=== PATIENT | male | born 1940 | race Caucasian/White ===

== ENCOUNTER → 2017-04-23 | Outpatient (CLI) | payer OTHER | END | disposition home or self-care (01) | LOC: CVU 08:59 | PROVIDERS: ATTEND Family Medicine | DX: I77.1 Stricture of artery (principal); I71.4 Abdominal aortic aneurysm, without rupture; G40.309 Generalized idiopathic epilepsy and epileptic syndromes, not intractable, without status epilepticus; Z87.820 Personal history of traumatic brain injury; Z72.0 Tobacco use | CPT/HCPCS: 93922; 93925 ==